=== PATIENT | male | born 1955 | race Caucasian/White ===

== ENCOUNTER 2020-07-26 10:37 | Day surgery (SDC) | payer OTHER ==
[2020-07-26] VITALS (14 sets, daily range): BP systolic 114–154; BP diastolic 58–84; PULSE 54–69; TEMP 97.6–98.1
[~2020-07-26] VITALS: Ht 175.3 cm; Wt 99.2 kg
[~2020-07-26 10:37] MED LIST: ALDACTONE 25MG25 M1 PO; ASPIR-LOW81 MG PO; ASPIRIN E.C. 8181 MG PO; CHANTIX1 MG PO; LIPITOR 80MG80 MG PO; LOPRESSOR 225 MG/TAB PO; PLAVIX 75MG TAB75 MG PO; PRINIVIL10 MG PO; SYNTHROID0.175 MG PO; VOLTAREN GEL 1%1 TU TP; [UNRECOGNIZED DRUG - CODE] PO
[2020-07-26] MEDS ORDERED: PROSCAR 5MG5 MG PO (11:12)
[2020-07-26] MEDS ORDERED: FLOMAX 0.40.4 MG/CAP PO (11:13)
[2020-07-26] MEDS ORDERED: BENADRYL25 M2 PO (11:13)
[2020-07-26 11:41] LABS: HEMATOCRIT 40.6 % (42.0-52.0); HEMOGLOBIN 13.5 g/dl (13.5-18.0); MEAN CELL VOLUME 90 fl (80.0-100.0); MEAN CORPUSCULAR HEMOGLOBIN 30 pg (27.0-31.0); MEAN CORPUSCULAR HGB CONC 33 g/dl (33.0-37.0); MEAN PLATELET VOLUME 10.1 fl (7.4-10.4); PLATELET COUNT 234 K/mm3 (130-400); RED BLOOD COUNT 4.52 M/mm3 (4.20-5.60); REDCELL DISTRIBUTION WIDTH-CV 13.2 % (11.5-14.5)
[2020-07-26 11:44] LABS: PROTHROMBIN TIME 11.3 SECONDS (9.7-12.8)
[2020-07-26 11:46] LABS: PARTIAL THROMBOPLASTIN TIME 28.5 SECONDS (26.0-37.0)
[2020-07-26 11:52] LABS: CALCIUM 9.1 mg/dL (8.4-10.2); CREATININE, serum 1.01 (0.66-1.25); POTASSIUM 4.4 mmol/L (3.4-5.0)
--- NOTE | 2020-07-26 12:05 | NUR ---
SEE MEREGE FOR ALL MEDICATION ADMIN. TIMES, INTRA AND POST SEDATION ASSESSMENT
[2020-07-26] MEDS ORDERED: BRILINTA90 MG PO ×2 (12:54)
--- NOTE | 2020-07-26 13:05 | NUR ---
PT BACK FROM [facility] VIA BED, IN ROOM, DR MARTINEZ INTO SEE PT. PT IS ON TELE, SITS UP IN BED, BAND ON, SITE REMAINS WITHOUT BLEEDING OR SWELLING, CALL LIGHT IN REACH, TAKES WATER AND TRAY ORDERED
--- NOTE | 2020-07-26 13:50 | NUR ---
WATCHES TV, NO C/O, ATE LUNCH
--- NOTE | 2020-07-26 15:10 | NUR ---
TR BAND RELEASED 2-3 ML OVER 15 MIN WITH NO BLEEDING OR SWELLING, BANDAID APPLIED WITH COBAN. REPORT CALLED TO 3RD FLOOR NURSE.
--- NOTE | 2020-07-26 16:00 | NUR ---
pt transferred to [facility] via w/c, report updated to [facility]. pt rests in bed, call light in reach, right wrist remains the same, no c/o
--- NOTE | 2020-07-26 16:30 | NUR ---
Patient arrived to the floor via wheel chair. His is with him. Oriented patient to room. Patient denies pain or nausea. His right hand is pink, pulses are good. Dressing to right wrist is C/D/I. Patient stated it is a little sore to right right wrist, explained that is normal. No other changes at this time. Call light within reach.
--- NOTE | 2020-07-26 19:10 | NUR ---
Received report from [place]. Seen patient awake, lying in bed. Patient is post heart cath. Right radial is clean, dry and intact. Patient verbalizes slight discomfort only but says it's tolerable. Call light within reach.
[2020-07-27 04:12] VITALS: BP 118/62; PULSE 64; TEMP 98.2
--- NOTE | 2020-07-27 06:28 | NUR ---
Patient had uneventful night. He denies pain. No other complains noted.
[2020-07-27 08:15] VITALS: BP 145/78; PULSE 58; TEMP 97.8
--- NOTE | 2020-07-27 09:03 | NUR ---
Patient is alert and oriented. denies any pain. patient verbalize good appetite and interest in going home soon. Patient have no further concern this morning.
[2020-07-27] MEDS ORDERED: BRILINTA90 MG PO (10:31)
[2020-07-27 12:00] VITALS: BP 125/67; PULSE 58; TEMP 97.7
--- NOTE | 2020-07-27 14:58 | NUR ---
Patient was started on new home medication order Brilinta 90mg BID PO. INT was discontinued. Provided patient with discharge education and followup appointment with Dr Bourne in two weeks. Patient discharge home with Spouse. Nursing staff escorted patient out of the building.
--- NOTE | 2020-07-27 15:51 | NUR ---
Plan to discharge home with Danielle . SW met with patient about dc plan. Patient reports that his PCP is Dr. Pollard. Patient reports that he uses CPAP. Adityan reports that his spouse is DPOA abd has another family member apart of his care Stephanie Aquino . Patient denies having any concerns about his care. Patient indicated that he has transportation. No additional concerns identifed.
== END 2020-07-27 13:15 | disposition home or self-care (01) ==
LOC: COL.CAR 10:37 → MEDICAL 16:20 → COL.CAR 07-27 13:15
PROVIDERS: Internal Medicine Cardiovascular Disease
DX: T82.855A Stenosis of coronary artery stent, initial encounter (principal); I25.10 Atherosclerotic heart disease of native coronary artery without angina pectoris; I10 Essential (primary) hypertension; R53.83 Other fatigue; E78.5 Hyperlipidemia, unspecified; G47.10 Hypersomnia, unspecified; G47.33 Obstructive sleep apnea (adult) (pediatric); E66.9 Obesity, unspecified; Z68.32 Body mass index [BMI] 32.0-32.9, adult; Z87.891 Personal history of nicotine dependence; Z88.8 Allergy status to other drugs, medicaments and biological substances; Z79.82 Long term (current) use of aspirin
CPT/HCPCS: OP; C1725; C1769; C1887; J1644; J2250; J3010; J7030

== ENCOUNTER 2020-11-22 09:47 | Day surgery (SDC) | payer OTHER ==
[2020-11-22] VITALS (13 sets, daily range): BP systolic 105–166; BP diastolic 57–87; PULSE 57–96; TEMP 97.9–98.2
[2020-11-22 09:39] LABS: HEMATOCRIT 39.3 % (42.0-52.0); HEMOGLOBIN 12.9 g/dl (13.5-18.0); MEAN CELL VOLUME 90 fl (80.0-100.0); MEAN CORPUSCULAR HEMOGLOBIN 30 pg (27.0-31.0); MEAN CORPUSCULAR HGB CONC 33 g/dl (33.0-37.0); MEAN PLATELET VOLUME 9.5 fl (7.4-10.4); PLATELET COUNT 248 K/mm3 (130-400); RED BLOOD COUNT 4.35 M/mm3 (4.20-5.60); REDCELL DISTRIBUTION WIDTH-CV 13.8 % (11.5-14.5)
[~2020-11-22 09:47] MED LIST changes: +BENADRYL25 M2 PO; +BRILINTA90 MG PO; +FLOMAX 0.40.4 MG/CAP PO; +PROSCAR 5MG5 MG PO
[2020-11-22 09:49] LABS: CREATININE, serum 1.07 (0.66-1.25); POTASSIUM 4.5 mmol/L (3.4-5.0)
[2020-11-22 09:57] LABS: PROTHROMBIN TIME 11.2 SECONDS (9.7-12.8)
[2020-11-22] MEDS ORDERED: COREG 6.256.25 MG/TA PO (09:58)
[2020-11-22] MEDS ORDERED: PLAVIX 75MG TAB75 MG PO (09:58)
[2020-11-22] MEDS ORDERED: RANEXA 500MG T500 MG PO (09:59)
--- NOTE | 2020-11-22 10:08 | NUR ---
SEE MERGE FOR ALL MEDICATION ADMINISTRATION TIMES, INTRA AND POST SEDATION ASSESSMENTS
[2020-11-22 11:14] LABS: PARTIAL THROMBOPLASTIN TIME 30.7 SECONDS (26.0-37.0)
--- NOTE | 2020-11-22 11:47 | NUR ---
Report received pt transferring to ICU.
--- NOTE | 2020-11-22 12:15 | NUR ---
Patient arrived to room 317 from [facility], alert/oriented, vital signs stable, denies pain or discomfort, right radial site TR band in place with 15cc and no signs of bleeding, right groind femoral site has angioseal and external safeguard in place, patient will have flat time untill 1400, will monitor closely
--- NOTE | 2020-11-22 13:45 | NUR ---
removed 4 cc of air from TR band per protocol, immediatley started bleeding, air returned and oozing stopped
--- NOTE | 2020-11-22 20:00 | NUR ---
Initial shift assessment done- denies pain, denies SOB, VSS, Tele on, right groin site soft, no bleeding, no hematoma- right radial site with air band on-- doctor aware of bleeding earlier- will keep air on both groin and radial at this time- due to earlier bleeding issues, good cms to all extremities- no numbness, tingling etc-
--- NOTE | 2020-11-23 03:00 | NUR ---
Pt resting well, no issues, VSS, released 3cc air from r/ radial band, no bleeding noted- right femoral site without hematoma- no bleeding, soft,femstop is 1/2 off - so removed and bandaid applied.
[2020-11-23 03:45] VITALS: BP 144/74; PULSE 57; TEMP 97.7
--- NOTE | 2020-11-23 04:00 | NUR ---
Another 5cc of air removed from radial band-- no bleeding,,
--- NOTE | 2020-11-23 05:00 | NUR ---
Rest of the air removed from radial band - no bleeding- bruised, soft, no hematoma-- bandaid applied,, did get just a few hours of sleep-- VSS, right groin soft- no bleeding, no hematoma bandaid on
--- NOTE | 2020-11-23 07:00 | NUR ---
Report received from RIOS Fong. PT in bed resting, viridiana hernandez, will continue to monitor.
--- NOTE | 2020-11-23 08:45 | NUR ---
Assessment charted. Pt doing well, resting in bed, up ad [place]a in room. R groin site is CDI, R radial site is CDI both have bandaids covering. Pt c/o soreness to sites but not active pain anywhere. Anticipating dishcarge today. INT to LFA. WIll cotninue to monitor.
[2020-11-23 09:44] VITALS: BP 134/68; PULSE 64; TEMP 97.8
--- NOTE | 2020-11-23 12:58 | NUR ---
Discharge teaching completed at this time. Pt received discharge packet, discharge meds, stent card. Answered all questions, reviewed restrictions per Dr. Proctor. INT dc'd, tip intact. Pt left with all belongings, escorted out by medical staff, family to drive home, criteria met.
--- NOTE | 2020-11-23 13:54 | NUR ---
Plan to return homw with Danielle , alternate contact son Kentrell . PCP Dr. Tucker, RX obtained at [facility]. CPAP use but not consistent. Painet indicated that he ahs not used since . Arleth reports that he is indpendent and has transportation. Patient reports that he has not need of other services at this time and is independent. Nothing Further
== END 2020-11-23 12:59 | disposition home or self-care (01) ==
LOC: COL.CAR 09:47 → MEDICAL 13:00 → COL.CAR 11-23 12:59
PROVIDERS: Internal Medicine Cardiovascular Disease
DX: I25.10 Atherosclerotic heart disease of native coronary artery without angina pectoris (principal); I21.3 ST elevation (STEMI) myocardial infarction of unspecified site; I10 Essential (primary) hypertension; E78.5 Hyperlipidemia, unspecified; G47.33 Obstructive sleep apnea (adult) (pediatric); E66.9 Obesity, unspecified; E03.9 Hypothyroidism, unspecified; Z79.891 Long term (current) use of opiate analgesic; Z95.1 Presence of aortocoronary bypass graft; Z88.8 Allergy status to other drugs, medicaments and biological substances; Z99.89 Dependence on other enabling machines and devices; Z20.822 Contact with and (suspected) exposure to COVID-19; Z68.32 Body mass index [BMI] 32.0-32.9, adult
CPT/HCPCS: OP; C1725; C1760; C1769; C1874; C1887; C1894; C9600; J0153; J1644; J2250; J3010; J7030; Q9967

== ENCOUNTER → 2021-05-05 | Outpatient (CLI) | payer MEDICARE, OTHER ==
[~2021-05-05] MED LIST changes: +COREG 6.256.25 MG/TA PO; +RANEXA 500MG T500 MG PO
== END ==
LOC: COL.RAD 05-01 08:15
DX: Z13.6 Encounter for screening for cardiovascular disorders (principal); I70.90 Unspecified atherosclerosis; I77.819 Aortic ectasia, unspecified site; I65.21 Occlusion and stenosis of right carotid artery
CPT/HCPCS: Q9967

== ENCOUNTER 2021-08-27 06:56 | Emergency (ER) | payer MEDICARE, OTHER ==
[~2021-08-27] VITALS: Ht 177.8 cm; Wt 105.0 kg
[2021-08-27 06:57] VITALS: TEMP 97.7
[2021-08-27 08:08] LABS: BASO # 0.1 K/mm3 (0.0-0.2); BASO % 1.3 % (0.0-2.0); EOS # 0.1 K/mm3 (0.0-0.7); GRAN # 4.5 K/mm3 (1.4-6.5); HEMATOCRIT 43.8 % (42.0-52.0); HEMOGLOBIN 14.6 g/dl (13.5-18.0); LYMPH # 1.2 K/mm3 (1.2-3.4); LYMPH % 18.3 % (20.0-51.0); MEAN CELL VOLUME 89 fl (80.0-100.0); MEAN CORPUSCULAR HEMOGLOBIN 30 pg (27.0-31.0); MEAN CORPUSCULAR HGB CONC 33 g/dl (33.0-37.0); MEAN PLATELET VOLUME 9.7 fl (7.4-10.4); MONO # 0.8 K/mm3 (0.1-0.6); MONO % 11.8 % (1.7-9.3); PLATELET COUNT 254 K/mm3 (130-400); RED BLOOD COUNT 4.93 M/mm3 (4.20-5.60); REDCELL DISTRIBUTION WIDTH-CV 13.8 % (11.5-14.5)
[2021-08-27 08:28] LABS: ALANINE AMINOTRANSFERASE 26 U/L (0-55); ALKALINE PHOSPHATASE 53 U/L (40-150); ANION GAP 9 mmol/L (7-16); AST,SGOT 17 U/L (5-34); BILIRUBIN,TOTAL 0.6 mg/dL (0.2-1.2); BLOOD UREA NITROGEN 21 mg/dL (8-26); CALCIUM 9.1 mg/dL (8.4-10.2); CARBON DIOXIDE 21 mmol/L (23-31); CHLORIDE 105 mmol/L (98-107); CREATININE, serum 1.31 mg/dL (0.72-1.25); GLUCOSE 120 mg/dL (70-99); POTASSIUM 4.3 mmol/L (3.5-4.5); SODIUM 135 mmol/L (136-145); TOTAL PROTEIN 7.7 gm/dL (6.2-8.1)
[2021-08-27 08:37] LABS: TROPONIN-I < 0.010 ng/mL (0.00-0.033)
[2021-08-27 09:37] VITALS: BP 138/80; PULSE 67
== END 2021-08-27 09:37 | disposition home or self-care (01) ==
LOC: COL.ER 06:56
PROVIDERS: Personal Emergency Response Attendant
DX: R06.02 Shortness of breath (principal); N28.9 Disorder of kidney and ureter, unspecified; E03.9 Hypothyroidism, unspecified; I10 Essential (primary) hypertension; I25.10 Atherosclerotic heart disease of native coronary artery without angina pectoris; E78.5 Hyperlipidemia, unspecified; J44.9 Chronic obstructive pulmonary disease, unspecified; Z87.891 Personal history of nicotine dependence; Z79.82 Long term (current) use of aspirin; Z79.890 Hormone replacement therapy; Z79.899 Other long term (current) drug therapy

== ENCOUNTER → 2021-10-09 | Outpatient (CLI) | payer MEDICARE, OTHER | LOC: COL.PUL 09:42 | DX: R06.02 Shortness of breath (principal) | CPT/HCPCS: J7674 ==